=== PATIENT | male | born 1965 | race Hispanic/Latino ===

== ENCOUNTER 2024-01-24 13:49 | Emergency (ER) | payer OTHER ==
[~2024-01-24] VITALS: Ht 175.3 cm; Wt 120.2 kg
[2024-01-24 14:25] LABS: HEMATOCRIT 41.4 % (42-54); MEAN CORPUSCULAR HEMOGLOBIN 28.8 pg (27.0-33.0); MEAN CORPUSCULAR HGB CONC 33.1 g/dL (32.0-36.0); MEAN CORPUSCULAR VOLUME 87.2 fL (79-99); PLATELET COUNT (AUTO) 387 K/uL (130-400); RED BLOOD CELL COUNT(AUTO) 4.75 MIL/uL (4.50-6.20); RED CELL DISTRIBUTION WIDTH 14.6 % (11.0-15.5); WHITE BLOOD COUNT (AUTO) 10.5 K/uL (4.8-10.8)
[2024-01-24 14:34] LABS: CREATININE 1.6 mg/dL (0.5-1.3); POTASSIUM 3.5 mmol/L (3.5-5.1)
[2024-01-24] MEDS: 0.9%NACL 1000ML 1,000 ML IV ONE (14:37)
[2024-01-24] MEDS: MORPHINE 2 MG SYG IVP ONE (14:37)
[2024-01-24] MEDS: ONDANSETRON 4MG INJ IVP ONE (14:37)
[2024-01-24 14:53] LABS: BASOPHILS # (AUTO) 0.05 K/uL (0.00-0.20); BASOPHILS % (AUTO) 0.5 % (0.0-5.0); EOSINOPHILS # (AUTO) 0.11 K/uL (0.00-0.70); EOSINOPHILS % (AUTO) 1.1 % (0.0-8.0); IMMATURE GRANULOCYTE ABSOLUTE 0.18 K/uL (0-1); LYMPHOCYTES # (AUTO) 2.4 K/uL (1.0-4.8); LYMPHOCYTES % (AUTO) 23.1 % (21.0-51.0); MONOCYTES # (AUTO) 0.9 K/uL (0.1-1.0); MONOCYTES % (AUTO) 8.2 % (3.0-13.0); NEUTROPHILS # (AUTO) 6.8 K/uL (1.8-7.7); NEUTROPHILS % (AUTO) 65.4 % (40.0-77.0)
[2024-01-24 15:38] LABS: INR 1.03 (0.85-1.15); PROTHROMBIN TIME 11.1 SEC (9.6-11.6)
[2024-01-24 15:39] LABS: PARTIAL THROMBOPLASTIN TIME 26.8 SEC (26.3-35.5)
[2024-01-24] MEDS ORDERED: IOHEXOL-350 75 ML VIAL IV ONE (15:44)
[2024-01-24] MEDS: Solu-medROL 125MG VIAL IVP ONE (18:04)
[2024-01-24] MEDS ORDERED: ACET-2079 PO (18:14)
[2024-01-24 18:27] VITALS: BP 133/64; PULSE 84; RESP 18; O2SAT 98
== END 2024-01-24 18:27 | disposition home or self-care (01) ==
LOC: EDH 13:49
DX: K51.90 Ulcerative colitis, unspecified, without complications (principal); I10 Essential (primary) hypertension
CPT/HCPCS: 99285; 74177; 96374; 96361; 96375 ×2; 82270; 80048; 83690; 85025; 85610; 85730; 36415; J2270; J7030; J2919; J2405; Q9967